=== PATIENT | female | born 1990 | race American Indian/Alaskan Native ===

== ENCOUNTER → 2019-02-08 | Outpatient (CLI) | payer MEDICAID | LOC: FB.DI 09:33 | PROVIDERS: ATTEND Nurse Practitioner Women's Health | DX: O36.80X0 Pregnancy with inconclusive fetal viability, not applicable or unspecified (principal); O30.041 Twin pregnancy, dichorionic/diamniotic, first trimester; Z3A.10 10 weeks gestation of pregnancy | CPT/HCPCS: 76801 ==

== ENCOUNTER 2020-08-05 20:10 | Emergency (ER) | payer SELFPAY ==
[2020-08-05] MEDS ORDERED: Ondansetron 4 MG/2 ML SDV IVPUSH STA (20:15)
[2020-08-05] MEDS ORDERED: Thiamine 100 MG in Sodium Chloride 0.9% 100 ML IV STA (20:15)
[2020-08-05] MEDS ORDERED: Sodium Chloride 0.9% 10 ML Syringe FLUSH PRN (20:15)
[2020-08-05] MEDS ORDERED: Sodium Chloride 0.9% 1,000 ML IV SCH ×2 (20:15→21:15)
[2020-08-05] MEDS ORDERED: Morphine 2 MG/ML SYRINGE IVPUSH ONE (20:31)
[2020-08-05] MEDS ORDERED: Prochlorperazine 10 MG in Sodium Chloride 0.9% 50 ML IV STA (20:31)
--- NOTE | 2020-08-05 21:15 | EDM.PDOC ---
ED HPI GENERAL MEDICAL PROBLEM - General Chief Complaint: Drug or Alcohol Abuse Time Seen by Provider: 08/05/20 20:25 Source of Information: Reports: Patient, EMS History Limitations: Reports: No Limitations - History of Present Illness INITIAL COMMENTS - FREE TEXT/NARRATIVE: Patient presented to the ED by EMS because of alcohol intoxication and superficial cuts on both wrist. She drank a bottle of liquor tonight and then scratched her upper arms with an unknown sharp object. She denies having any suicidal or homicidal thoughts. She c/o abdominal pain, nausea and vomiting. - Related Data Allergies Allergy/AdvReac Type Severity Reaction Status Date / Time sulfamethoxazole Allergy Rash Verified 09/21/13 21:25 [From Bactrim] trimethoprim [From Bactrim] Allergy Rash Verified 09/21/13 21:25 Home Meds: Home Meds Prenat 115/Iron Fum/Folic/Dss [ 19 Tablet] 1 each PO 09/21/13 [History] Past Medical History - Past Health History Medical/Surgical History: Denies Medical/Surgical History ED ROS GENERAL - Review of Systems Review Of Systems: See Below Constitutional: Reports: No Symptoms HEENT: Reports: No Symptoms Respiratory: Reports: No Symptoms Cardiovascular: Reports: No Symptoms Endocrine: Reports: No Symptoms GI/Abdominal: Reports: Abdominal Pain, Nausea, Vomiting Musculoskeletal: Reports: No Symptoms Skin: Reports: Other (multiple shallow scratches-both arms) Neurological: Reports: No Symptoms Psychiatric: Reports: No Symptoms ED EXAM, GENERAL - Physical Exam Exam: See Below Exam Limited By: No Limitations General Appearance: Alert Eye Exam: Bilateral Eye: PERRL Ears: Normal External Exam, Normal Canal Nose: Normal Inspection, Normal Mucosa, No Blood Throat/Mouth: Normal Inspection, Normal Lips, Normal Teeth, Normal Gums Head: Atraumatic, Normocephalic Neck: Normal Inspection, Supple, Non-Tender, Full Range of Motion Respiratory/Chest: No Respiratory Distress, Lungs Clear, Normal Breath Sounds Cardiovascular: Normal Peripheral Pulses, Regular Rate, Rhythm, No Edema, No Gallop, No JVD, No Murmur, No Rub GI/Abdominal: Normal Bowel Sounds, Soft, Non-Tender, No Organomegaly Back Exam: Normal Inspection, Full Range of Motion Extremities: Normal Inspection, Normal Range of Motion Neurological: Alert, Oriented Course - Vital Signs Text/Narrative:: Lab result was reviewed and discussed with patient NS 1 L X 2 doses Zofran 4 mg IV x1 Compazine 4 10 mg IV x1 Morphine 2 mg IV x1 Thiamine 100 mg IV x1 Last Recorded V/S: Last Vital Signs Temp 36.1 C 08/05/20 20:20 Pulse 88 08/05/20 20:20 Resp 20 08/05/20 20:20 BP 134/93 H 08/05/20 20:20 Pulse Ox 98 08/05/20 20:20 - Orders/Labs/Meds Orders: Active Orders 24 hr Category Date Time Status DRUG SCREEN, URINE ALERE [URCHEM] Stat Lab 08/05/20 20:15 Ordered Sodium Chloride 0.9% [Normal Saline] 1,000 ml Med 08/05/20 20:15 Active IV ASDIRECTED Sodium Chloride 0.9% [Normal Saline] 1,000 ml Med 08/05/20 21:15 Active IV ASDIRECTED Sodium Chloride 0.9% [Saline Flush] Med 08/05/20 20:15 Active 10 ml FLUSH ASDIRECTED PRN Saline Lock Insert [OM.PC] Routine Oth 08/05/20 20:15 Ordered Medication Orders Sodium Chloride (Normal Saline) 1,000 mls @ 999 mls/hr IV ASDIRECTED SUNIL Last Admin: 08/05/20 20:55 Dose: 999 mls/hr Documented by: BRUNO Sodium Chloride (Normal Saline) 1,000 mls @ 999 mls/hr IV ASDIRECTED SUNIL Sodium Chloride (Sodium Chloride 0.9% 10 Ml Syringe) 10 ml FLUSH ASDIRECTED PRN PRN Reason: Keep Vein Open Labs: Laboratory Tests 08/05/20 08/05/20 08/05/20 Range/Units 20:24 20:24 20:24 WBC 9.8 (3.0-10.3) x10-3/uL RBC 5.02 (3.60-5.20) x10(6)uL Hgb 13.2 (11.4-15.5) g/dL Hct 40.4 (34.2-48.2) % MCV 80.5 (76.7-100.5) fL MCH 26.3 (23.9-33.9) pg MCHC 32.6 (31.9-34.8) g/dL RDW 16.3 (12.3-16.5) % Plt Count 398 (151-488) x10(3)uL MPV 8.9 (7.1-12.4) fL Neut % (Auto) 62.0 (30.8-76.2) % Lymph % (Auto) 31.9 (18.4-52.1) % [place] % (Auto) 4.9 (4.4-15.7) % Eos % (Auto) 0.6 (0.6-8.1) % Baso % (Auto) 0.6 (0.2-1.5) % Neut # (Auto) 6.0 (1.5-6.3) x10-3/uL Lymph # (Auto) 3.1 (1.0-4.4) x10-3/uL [place] # (Auto) 0.5 (0.3-1.0) x10-3/uL Eos # (Auto) 0.1 (0.0-0.8) x10-3/uL Baso # (Auto) 0.1 (0.0-0.1) x10-3/uL Sodium 140 (135-145) mmol/L Potassium 3.8 (3.5-5.3) mmol/L Chloride 103 (100-110) mmol/L Carbon Dioxide 22 (21-32) mmol/L BUN 16 (7-18) mg/dL Creatinine 1.0 (0.55-1.02) mg/dL Est Cr Clr Drug Dosing TNP Estimated GFR (MDRD) > 60 (>60) BUN/Creatinine Ratio 16.0 (9-20) Glucose 117 H (80-116) mg/dL Calcium 8.0 L (8.6-10.2) mg/dL Total Bilirubin 0.1 (0.1-1.3) mg/dL AST 19 (5-25) IU/L ALT 21 (12-36) U/L Alkaline Phosphatase 93 (56-112) IU/L Total Protein 7.9 (6.0-8.0) g/dL Albumin 3.6 (3.5-5.2) g/dL Globulin 4.3 g/dL Albumin/Globulin Ratio 0.8 Amylase 70 (25-115) U/L Lipase 130 (73-393) U/L Ethyl Alcohol 0.23 H* (<0.03) % Meds: Medications Generic Name Dose Route Start Last Admin Trade Name Freq PRN Reason Stop Dose Admin Sodium Chloride 1,000 mls @ 999 mls/hr 08/05/20 20:15 08/05/20 20:55 Normal Saline IV 999 mls/hr ASDIRECTED SUNIL Administration Sodium Chloride 1,000 mls @ 999 mls/hr 08/05/20 21:15 Normal Saline IV ASDIRECTED SUNIL Sodium Chloride 10 ml 08/05/20 20:15 Sodium Chloride 0.9% 10 Ml Syringe FLUSH ASDIRECTED PRN Keep Vein Open Discontinued Medications Generic Name Dose Route Start Last Admin Trade Name Freq PRN Reason Stop Dose Admin Thiamine HCl 100 mg/ Sodium 101 mls @ 202 mls/hr 08/05/20 20:15 08/05/20 21:14 Chloride IV 08/05/20 20:16 202 mls/hr NOW STA Administration Prochlorperazine Edisylate 10 52 mls @ 150 mls/hr 08/05/20 20:31 08/05/20 20:56 mg/ Sodium Chloride IV 08/05/20 20:51 150 mls/hr NOW STA Administration Morphine Sulfate 2 mg 08/05/20 20:31 08/05/20 20:55 Morphine 2 Mg/Ml Syringe IVPUSH 08/05/20 20:32 2 mg ONETIME ONE Administration Ondansetron HCl 4 mg 08/05/20 20:15 Ondansetron 4 Mg/2 Ml Sdv IVPUSH 08/05/20 20:16 NOW STA Departure - Departure Time of Disposition: 23:00 Disposition: Home, Self-Care 01 Condition: Good Clinical Impression: Alcohol intoxication, Self-mutilation - Discharge Information Instructions: Self-Destructive Behavior, Alcohol Intoxication, [id number] Forms: ED Department Discharge Additional Instructions: Please read discharge instructions on alcohol intoxication and abuse Follow up with your doctor so you can have outpatient treatment of your alcohol problem Drink in moderation Sepsis Event Note (ED) - Evaluation Sepsis Screening Result: No Definite Risk - Focused Exam Vital Signs: Vital Signs Temp Pulse Resp BP Pulse Ox 08/05/20 20:20 36.1 C 88 20 134/93 H 98 - My Orders Last 24 Hours: My Active Orders 08/05/20 20:15 DRUG SCREEN, URINE ALERE [URCHEM] Stat Sodium Chloride 0.9% [Normal Saline] 1,000 ml IV ASDIRECTED Sodium Chloride 0.9% [Saline Flush] 10 ml FLUSH ASDIRECTED PRN Saline Lock Insert [OM.PC] Routine 08/05/20 21:15 Sodium Chloride 0.9% [Normal Saline] 1,000 ml IV ASDIRECTED - Assessment/Plan Last 24 Hours: My Active Orders 08/05/20 20:15 DRUG SCREEN, URINE ALERE [URCHEM] Stat Sodium Chloride 0.9% [Normal Saline] 1,000 ml IV ASDIRECTED Sodium Chloride 0.9% [Saline Flush] 10 ml FLUSH ASDIRECTED PRN Saline Lock Insert [OM.PC] Routine 08/05/20 21:15 Sodium Chloride 0.9% [Normal Saline] 1,000 ml IV ASDIRECTED
[2020-08-06 01:11] VITALS: BP 149/94; PULSE 94
== END 2020-08-05 23:55 | disposition home or self-care (01) ==
LOC: FB.ED 20:10
DX: S40.812A Abrasion of left upper arm, initial encounter (principal); S40.811A Abrasion of right upper arm, initial encounter; F10.129 Alcohol abuse with intoxication, unspecified; Z88.2 Allergy status to sulfonamides; Z88.1 Allergy status to other antibiotic agents; Y90.6 Blood alcohol level of 120-199 mg/100 ml; X78.9XXA Intentional self-harm by unspecified sharp object, initial encounter
CPT/HCPCS: 36415; 80053; 80307; 82150; 83690; 85025; 96365; 96367; 96375; 99284-25; J0780; J2270; J3411; J7030

== ENCOUNTER 2021-04-11 21:03 | Emergency (ER) | payer MEDICAID ==
[2021-04-11] MEDS ORDERED: Sodium Chloride 0.9% 10 ML Syringe FLUSH PRN (21:05)
[2021-04-11] MEDS ORDERED: Ondansetron 4 MG/2 ML SDV ONE (21:07)
[2021-04-11] MEDS ORDERED: LORazepam 2 MG/ML SDV ONE (21:16)
[2021-04-11 21:58] LABS: ACETAMINOPHEN < 2 ug/mL (<2)
== END 2021-04-11 22:10 ==
LOC: FB.ED 21:03
DX: T50.901A Poisoning by unspecified drugs, medicaments and biological substances, accidental (unintentional), initial encounter (principal); F10.129 Alcohol abuse with intoxication, unspecified; Z88.2 Allergy status to sulfonamides; Y90.0 Blood alcohol level of less than 20 mg/100 ml
CPT/HCPCS: 36415; 80053; 80143; 80179; 80307; 84702; 85025; 99285-25

== ENCOUNTER 2021-09-27 18:44 | Emergency (ER) | payer MEDICAID ==
[2021-09-27] MEDS ORDERED: Amoxicillin 500 MG Cap PO ONE (18:45)
[2021-09-27 19:42] LABS: ESTIMATED GFR 102 mL/min (>60)
[2021-09-27 20:06] LABS: STREP A BY PCR DETECTED (NOT DETECT)
[2021-09-27 20:19] LABS: CORONAVIRUS COVID-19 NAA NEGATIVE (NEGATIVE)
[2021-09-27 20:41] VITALS: BP 118/86; PULSE 96
== END 2021-09-27 20:15 | disposition home or self-care (01) ==
LOC: FB.ED 18:44
DX: J02.0 Streptococcal pharyngitis (principal); Z88.2 Allergy status to sulfonamides; Z20.822 Contact with and (suspected) exposure to COVID-19
CPT/HCPCS: 36415; 80048; 85025; 86308; 87651-QW; 99281; 99283; A9270-GY; U0002